=== PATIENT | female | born 1995 | race Caucasian/White ===

== ENCOUNTER 2017-01-08 08:13 | Emergency (ER) | payer OTHER | END 2017-01-08 09:09 | disposition home or self-care (01) | LOC: CFTX 08:13 | DX: L02.414 Cutaneous abscess of left upper limb (principal); Z90.49 Acquired absence of other specified parts of digestive tract; Z90.89 Acquired absence of other organs | CPT/HCPCS: 10060; 87070; 87077; 87186; 87205; 99283 ==

== ENCOUNTER 2017-01-10 23:56 | Emergency (ER) | payer OTHER | END 2017-01-11 01:14 | disposition home or self-care (01) | LOC: CED 23:56 | DX: L02.414 Cutaneous abscess of left upper limb (principal); L03.114 Cellulitis of left upper limb | CPT/HCPCS: 99282 ==

== ENCOUNTER 2017-04-29 19:12 | Emergency (ER) | payer OTHER | END 2017-04-29 20:52 | disposition home or self-care (01) | LOC: CFTX 19:12 → CED 19:12 → CFTX 20:02 | DX: L03.114 Cellulitis of left upper limb (principal); Z90.49 Acquired absence of other specified parts of digestive tract; Z23 Encounter for immunization | CPT/HCPCS: 90471; 90715; 99282 ==